=== PATIENT | female | born 1955 | race Caucasian/White ===

== ENCOUNTER → 2017-11-26 | Outpatient (CLI) | payer OTHER ==
[~2017-11-26] MED LIST: AMBIEN 5 MG TABL5 M1 PO; APAP650 PO; COSAMIN DS TAB1 EACH PO; GLUCOSAMINE-CH1 EA37 PO; HYDROCODON-ACE1 EAC5 PO; HYDROXYCHLOROQ200 M1 PO; LUNESTA2 MG PO; METHADONE HCL 110 M1 PO; METHADONE HCL5 MG PO; NEXIUM20 M1 PO; NEXIUM40 MG PO; PREDNISONE 10 M10 MG PO; TIZANIDINE HCL4 M1 PO; TRAZODONE 150150 M1 PO; multivitamin PO
--- NOTE | 2017-11-27 08:24 | PAINCON ---
[address] [address] PAIN MANAGEMENT CONSULTATION Name: SAFIA QUISPE Room: [facility]#: [id number] Admission: 11/26/17 Attend Phys: Madhuri Bishop Discharge: Date of : 53 Report #: [id number] THIS REPORT FOR: //name// CC: Perfecto Plaza DATE OF SERVICE: 11/26/2017 HISTORY OF PRESENT ILLNESS: The patient is a 62-year-old female, being treated for axial back pain, history of both cervical and lumbar decompressive laminectomies with ongoing SI pain status post SI injection under fluoroscopy (left) on last visit. The patient notes that the left SI joint injection afforded a good incremental relief up to 80% with ongoing resolution. She is continuing to take methadone 5 mg t.i.d., though she has dropped the morning dose typically to 1/2 tablet. She notes 80% ongoing relief following the SI injection and is doing core therapy exercises about 5/7 days. We reviewed the fact that opiate medications are being used to provide analgesia adequate to support activities of daily living, not attempting to achieve a specific pain score on the 0-10 Visual Analog Scale. The current opiate medications are providing sufficient analgesia to allow the patient to participate in activities of daily living. The patient is not exhibiting any aberrant behavior suggestive of drug diversion. The patient is not having any adverse reactions to medications. The patient is not suffering from daytime somnolence or mental acuity changes. The patient is managing opiate-induced constipation with appropriate xoai-ncx-ymswbhn agents and dietary considerations. The patient was counseled on concern for caution with operating a motor vehicle while using opiate medications. A physical exam was performed and the patient's functional status was evaluated. All patients with back pain were advised against the bed rest greater than 4 days and were advised to return to normal activities. Pain score assessment was noted and the treatment plan was reviewed with the patient. All current medications, both prescribed and OTC were reviewed and reconciled on the electronic medical record. Tobacco screening was accomplished and smoking cessation was advised when indicated. BMI was noted and diet/exercise modification was recommended for all patients following outside normal parameters. I reviewed with the patient today their responsibilities to safeguard prescription medications, reviewed their responsibility to utilize medications only as prescribed by the physician. They are to seek and receive pain medications only from 1 physician group ( [facility]). They are to use 1 pharmacy and keep the clinic informed if they change pharmacies. Their responsibilities include making followup visits in a timely fashion and to avoid abrupt discontinuation of medication usage. [place] [address] PAIN MANAGEMENT CONSULTATION Name: SAFIA QUISPE Room: [facility] NAE Aguilar#: [id number] Admission: 11/26/17 Attend Phys: Madhuri Bishop Discharge: Date of : 53 Report #: [id number] include bringing their medications (bottles from the pharmacy with residual pills) to the visit for possible confirmation of pill counts and the patient understands it is their responsibility to submit to random drug screens to ensure both that the medications prescribed are present, and that no other controlled substances are present. All prescriptions provided today were generated electronically. PHYSICAL EXAMINATION: GENERAL: Shows a pleasant 62-year-old female. Opiate risk assessment tool scores in the low range. Pain impact score is 17/70. Subjective pain score is 2-3 on a VAS. 5 feet 2 inches, 140 pounds, BMI is 25.9 kilograms per meter squared. VITAL SIGNS: Blood pressure 113/61, pulse 96, respirations 16. NEUROLOGIC: Alert and oriented to person, place and time, judged to be a reasonable historian. MUSCULOSKELETAL: Rises from chair easily. Gait is tandem. Diffuse tenderness across the low back, right greater than left SI. Lower extremity strength is preserved. ASSESSMENT: Symptomatic sacroiliac mediated pain, history of axial back pain, lumbar radiculopathy status post decompressive laminectomy and status post cervical decompressive laminectomy as well, requiring high risk complex medication management. RECOMMENDATIONS: 1. Review an opiate consent to treat contract today. 2. Buccal random drug swab was accomplished today, no aberrant behavior suggestive of drug diversion, simply complying with our opiate consent to treat contract. 3. I have taken the liberty of renewing methadone 5 mg t.i.d. with 2 prescriptions, 1 released today and 1 release in 4 weeks. Suggest patient continue trialing 1/2 methadone in the morning and progressed to 1/2 tablet at midday. She can take up to 1 tablet t.i.d. as needed. Follow up in 2 months for reevaluation. Discharged in good and stable condition after moderately prolonged visit spent reviewing opiate consent to treat contract, medication risks and profiles and efficacy of last injection. <ELECTRONICALLY SIGNED> By: Masoud Plaza DO 11/27/17 0824 [id number] [id number] Plaza DO /nt
== END ==
LOC: M.PC 11-12 10:00
DX: M54.16 Radiculopathy, lumbar region (principal); M53.3 Sacrococcygeal disorders, not elsewhere classified; Z98.890 Other specified postprocedural states; Z79.899 Other long term (current) drug therapy

== ENCOUNTER → 2018-02-11 | Outpatient (CLI) | payer OTHER ==
--- NOTE | 2018-02-12 06:52 | PAINCON ---
[address] [address] PAIN MANAGEMENT CONSULTATION Name: SAFIA QUISPE Room: [facility]#: [id number] Admission: 02/11/18 Attend Phys: Madhuri Bishop Discharge: Date of : 53 Report #: [id number] THIS REPORT FOR: //name// CC: Perfecto Plaza DATE OF SERVICE: 02/11/2018 The patient is a 62-year-old female, prior seen in the pain clinic 11/26/2017, continued on methadone 5 mg t.i.d. for axial back pain, history of cervical and lumbar decompressive laminectomies, SI joint dysfunction requiring complex medication management. Buccal swab at last visit was curiously negative for methadone and EDDP. The patient has exhibited no aberrant behavior suggestive for drug diversion. We elected to repeat the buccal swab today. She notes pain is 0-1 on VAS and notes pain has been manageable with her current medication, prior had been in her back and left leg. PHYSICAL EXAMINATION: Shows 5-foot 2-inch, 143-pound female, BMI is 26.3 kilograms per meter squared. Blood pressure 103/71, pulse 84, respirations 16. Cranial nerves 2-12 are grossly intact. Pupils are pinpoint but reactive. Extraocular muscles are intact. Rises from chair using armrest. Gait is tandem. Lower extremity strength is preserved. Lumbar flexion is limited. She tells me she has been walking nightly about 30 minutes. She has not fallen since our last visit, does not use tobacco products. We reviewed the fact that opiate medications are being used to provide analgesia adequate to support activities of daily living, not attempting to achieve a specific pain score on the 0-10 Visual Analog Scale. The current opiate medications are providing sufficient analgesia to allow the patient to participate in activities of daily living. The patient is not exhibiting any aberrant behavior suggestive of drug diversion. The patient is not having any adverse reactions to medications. The patient is not suffering from daytime somnolence or mental acuity changes. The patient is managing opiate-induced constipation with appropriate dadh-bys-puwknxj agents and dietary considerations. The patient was counseled on concern for caution with operating a motor vehicle while using opiate medications. A physical exam was performed and the patient's functional status was evaluated. All patients with back pain were advised against the bed rest greater than 4 days and were advised to return to normal activities. Pain score assessment was noted and the treatment plan was reviewed with the patient. All current medications, both prescribed and OTC were reviewed and reconciled on the electronic medical record. Tobacco screening was accomplished and smoking cessation was advised when indicated. BMI was noted and diet/exercise modification was recommended [place] [address] PAIN MANAGEMENT CONSULTATION Name: SAFIA QUISPE Room: [facility]#: [id number] Admission: 02/11/18 Attend Phys: Madhuri Bishop Discharge: Date of : 53 Report #: [id number] parameters. I reviewed with the patient today their responsibilities to safeguard prescription medications, reviewed their responsibility to utilize medications only as prescribed by the physician. They are to seek and receive pain medications only from 1 physician group ( [facility]). They are to use 1 pharmacy and keep the clinic informed if they change pharmacies. Their responsibilities include making followup visits in a timely fashion and to avoid abrupt discontinuation of medication usage. Their responsibilities further include bringing their medications (bottles from the pharmacy with residual pills) to the visit for possible confirmation of pill counts and the patient understands it is their responsibility to submit to random drug screens to ensure both that the medications prescribed are present, and that no other controlled substances are present. All prescriptions provided today were generated electronically. ASSESSMENT: Lumbar radiculopathy, axial back pain, left radicular pain status post decompressive laminectomy, sacroiliac joint dysfunction requiring complex medication management, stable on baseline medication. RECOMMENDATION: Renew methadone 5 mg t.i.d. Taken the liberty of writing for 2 months of current medication. Repeat buccal drug swab today. The patient had a prolonged visit today. I spent reviewing diagnostic findings (negative buccal swab last visit), physical exam and functional status. If buccal swab comes back negative at next visit, we will probably want to get a urine drug screen. I am somewhat stymied why current screen would have been negative. Again, anyone can divert opiates, but she is on relatively low dose "nondesirable" methadone. Follow up in 1 month for reevaluation. Repeat drug screen if needed. <ELECTRONICALLY SIGNED> By: Masoud Plaza DO 02/12/18 0652 [id number] [id number] Plaza DO /nt
== END ==
LOC: M.PC 01-21 01:21
DX: M54.16 Radiculopathy, lumbar region (principal); M53.3 Sacrococcygeal disorders, not elsewhere classified; Z79.899 Other long term (current) drug therapy

== ENCOUNTER → 2018-04-15 | Outpatient (CLI) | payer OTHER ==
--- NOTE | 2018-04-16 06:59 | PAINCON ---
[address] [address] PAIN MANAGEMENT CONSULTATION Name: SAFIA QUISPE Room: [facility].#: [id number] Admission: 04/15/18 Attend Phys: Madhuri Bishop Discharge: Date of : 53 Report #: [id number] THIS REPORT FOR: //name// CC: Perfecto Plaza The patient is a 62-year-old female, prior seen in pain clinic 02/11/2018. She is being treated for chronic axial back pain, history of lumbar and cervical decompressive laminectomy, requiring complex medication management. She has been stable on methadone 5 mg t.i.d. She tells me she just got back from traveling to [place], [place], spent a good deal of time, walking the same which did exacerbate axial back pain. She has been back in about a week and states symptoms are starting to get a little better overall. She has also recently been diagnosed with systemic scleroderma. She is being followed by Rheumatology at . They prescribed Plaquenil. She is waiting until next week to start that agent. States the methadone and tizanidine p.r.n. have been helpful overall. She rates her pain a 1-2 on a VAS. Physical exam shows 5 feet 2 inches, 150 pound female, BMI is 27.4 kilograms per meter squared. Blood pressure 126/63, pulse is 87, respirations 16. Alert and oriented to person, place and time, judged to be a reasonable historian. Rises from chair using armrest. Gait is generally tandem, some diffuse tenderness across the low back, a little left SI tenderness, but really fairly nominal at this time. Range of motion is good. Lumbar flexion. Yara is negative. Straight leg raise is negative. We reviewed the fact that opiate medications are being used to provide analgesia adequate to support activities of daily living, not attempting to achieve a specific pain score on the 0-10 Visual Analog Scale. The current opiate medications are providing sufficient analgesia to allow the patient to participate in activities of daily living. The patient is not exhibiting any aberrant behavior suggestive of drug diversion. The patient is not having any adverse reactions to medications. The patient is not suffering from daytime somnolence or mental acuity changes. The patient is managing opiate-induced constipation with appropriate fleo-cnc-zduaqkw agents and dietary considerations. The patient was counseled on concern for caution with operating a motor vehicle while using opiate medications. A physical exam was performed and the patient's functional status was evaluated. All patients with back pain were advised against the bed rest greater than 4 days and were advised to return to normal activities. Pain score assessment was noted and the treatment plan was reviewed with the patient. All current medications, both prescribed and OTC were reviewed and reconciled on the electronic medical record. Tobacco screening was accomplished and smoking [facility] [address] [place] [address] PAIN MANAGEMENT CONSULTATION Name: SAFIA QUISPE Room: [facility]#: [id number] Admission: 04/15/18 Attend Phys: Madhuri Bishop Discharge: Date of : 53 Report #: [id number] cessation was advised when indicated. BMI was noted and diet/exercise modification was recommended for all patients following outside normal parameters. I reviewed with the patient today their responsibilities to safeguard prescription medications, reviewed their responsibility to utilize medications only as prescribed by the physician. They are to seek and receive pain medications only from 1 physician group ( [facility]). They are to use 1 pharmacy and keep the clinic informed if they change pharmacies. Their responsibilities include making followup visits in a timely fashion and to avoid abrupt discontinuation of medication usage. Their responsibilities further include bringing their medications (bottles from the pharmacy with residual pills) to the visit for possible confirmation of pill counts and the patient understands it is their responsibility to submit to random drug screens to ensure both that the medications prescribed are present, and that no other controlled substances are present. All prescriptions provided today were generated electronically. ASSESSMENT: Chronic axial back pain, history of sacroiliac mediated dysfunction, history of lumbar decompressive laminectomy, requiring complex medication management, stable on baseline medication including methadone 5 mg t.i.d., tizanidine 4 mg 2-3 tablets as needed for spasm. I have taken the liberty of writing for 2 months. Follow up with my partner, Dr. Nas Zeng for ongoing care as I am leaving the practice area. <ELECTRONICALLY SIGNED> By: Masoud Plaza DO 04/16/18 0659 1237 [id number] Plaza DO /nt
== END ==
LOC: M.PC 04-08 08:30
DX: M54.5 Low back pain (principal); G89.29 Other chronic pain; Z79.899 Other long term (current) drug therapy

== ENCOUNTER → 2018-06-09 | Outpatient (CLI) | payer OTHER ==
--- NOTE | 2018-06-19 08:37 | PAINCON ---
[address] [address] PAIN MANAGEMENT CONSULTATION Name: SAFIA QUISPE [id number] Admission: 06/09/18 Attend Phys: Lou Zeng MD Discharge: Date of : 53 Report #: [id number] THIS REPORT FOR: //name// CC: Lou Read DATE OF SERVICE: 06/09/2018 CHIEF COMPLAINT: Right side SI joint pain. HISTORY OF PRESENT ILLNESS: The patient is a 62-year-old female who has been followed in the Pain Clinic for some time by Dr. Masoud Plaza. This is my first visit with her. States that she has a history of chronic pain associated with systemic scleroderma as well as some SI joint pain. She returns today for renewal of her medications. Overall, she feels that things are going reasonably well. As you recall, she works from her house. She has had surgery in her low back area involving the L5/L4 area. She has noted some bulging in recent time involving the L4-L5 low back area. Also, has been told that the L3 area has been shown some signs of bulging. She has had a fusion in her neck at C3-C4. Overall, things have been going reasonably well. She is having pain that radiates down the posterior portion of her back into the right buttocks down to the level of her knee. Finds that her current medications are going reasonably well. She also has scleroderma. Has some difficulty with thickening of her skin. Has some problems with swallowing. Has a history of Lawrence esophagitis. Also, has some pain associated with the SI joint. She is having some problems with scleroderma involving her fingertips. Notes that there is some pitting. She does use a keyboard, quite often note some worsening of pain. She would like to continue with her current medications. Overall, she feels that things are going reasonably well. She rates it as a 3/10. She has had no complications. The patient continues to be followed by Rheumatology at . She continues to take Plaquenil for her problem. She finds that tizanidine and methadone continue to be efficacious. She would like to continue these medications. She has had no complication from their use. She is aware that the opioid medications can be problematic ____ can arise. Notes that the pain results can decrease over a period of time secondary to tolerance. She would like to continue with her medications. ALLERGIES: COMPAZINE AND ADHESIVES. CURRENT MEDICATIONS: Tylenol 650 mg, Nexium 40 mg b.i.d., glucosamine chondroitin, Plaquenil 200 mg, methadone 5 mg tablets q.8h., tizanidine for upper back pain, Ambien 5 mg, and multivitamins. PAST MEDICAL HISTORY: [address] [place] [address] PAIN MANAGEMENT CONSULTATION Name: SAFIA QUISPE Room: [facility]#: [id number] Admission: 06/09/18 Attend Phys: Lou Zeng MD Discharge: Date of : 53 Report #: [id number] 1. Scleroderma. 2. Lawrence's esophagitis. 3. SI joint dysfunction. 4. History of lumbar radiculopathy status post lumbar surgery L4-L5 areas. 5. Cervical radicular pain status post C3-C4 fusion. PAST SURGICAL HISTORY: Hysterectomy in 1975, cholecystectomy in 1988, L4-L5 fusion in 2002, and C3-C4 fusion in 2008. 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 REVIEW OF SYSTEMS: Decreased appetite, fatigue, ringing in the ears, hearing loss, chest pain, angina, palpitations, bowel changes, rash, skin changes, hair and nail changes. LABORATORY DATA: No new laboratory values are available at the time of our interview. PAIN CLINIC ASSESSMENT: 1. History of arthritis associated with scleroderma. 2. Height 5 feet 2 inches, weight 147 pounds, BMI is 27. 3. VITAL SIGNS: Blood pressure is 135/80, heart rate 88, respiratory rate 16, room air saturation 97%, and temperature 98.8. 4. Pain intensity 01/10. 5. Fall risk. The patient has not fallen in the last 3 months. 6. Blood thinner. The patient is not on blood thinning medication. 7. Hypertension. The patient has not been treated for hypertension. 8. Opioid therapy. The patient received her medication from the Pain Clinic. 9. Risk assessment too low for use of opioid medication. 10. Functional assessment tool. 11. Recreational drug use. The patient denies recreational drugs. 12. Tobacco: The patient denies use of tobacco. 13. Alcohol: The patient has a monthly alcoholic beverage. IMPRESSION: 1. History of sacroiliac joint dysfunction with pain radiating down into the left buttocks and posterior thigh. 2. Scleroderma. 3. Lawrence's esophagitis. 4. SI joint dysfunction. 5. History of lumbar radiculopathy status post lumbar surgery L4-L5 areas. 6. Cervical radicular pain status post C3-C4 fusion. RECOMMENDATIONS: We discussed the treatment options with the patient. Risks and benefits of continued use of medications were reviewed. The patient would like to continue with her medications. She is having no complications. She is [facility] [address] [place] [address] PAIN MANAGEMENT CONSULTATION Name: SAFIA QUISPE Room: [facility]#: [id number] Admission: 06/09/18 Attend Phys: Lou Zeng MD Discharge: Date of : 53 Report #: [id number] thinking clearly. She continues to be followed by her other physicians in regards to her scleroderma. A script for her medications has been renewed. The patient will follow up in the future as needed. We would like to thank you for letting us participate in her care. We hope she continues to improve. <ELECTRONICALLY SIGNED> By: Lou Zeng MD 06/19/18 0837 [id number] [id number]. Nas Zeng MD /nt
== END ==
LOC: M.PC 04:56
DX: M53.3 Sacrococcygeal disorders, not elsewhere classified (principal); M34.9 Systemic sclerosis, unspecified; M54.2 Cervicalgia; K22.70 Barrett's esophagus without dysplasia

== ENCOUNTER → 2018-09-01 | Outpatient (CLI) | payer OTHER ==
--- NOTE | 2018-09-16 16:20 | PAINCON ---
[address] [address] PAIN MANAGEMENT CONSULTATION Name: SAFIA QUISPE Room: [facility] Jeff#: [id number] Admission: 09/01/18 Attend Phys: Lou Zeng MD Discharge: Date of : 53 Report #: [id number] THIS REPORT FOR: //name// CC: Lou Read DATE OF SERVICE: 09/01/2018 CHIEF COMPLAINT: Pain in the joints of my elbow and behind my knees. HISTORY: The patient is a 62-year-old female who has been followed in the pain clinic because of a systemic scleroderma. Has problems with her SI joints. Also, is having some pain and discomfort in the inner portion of or elbows bilaterally. Notes that there is a thickening of the skin in this area. Has some pain associated with numbness and tingling. She does use a lotion, which she places on it, which is helpful. Also, has some pain and discomfort behind her knees because of thickening of the skin in this area. Feels overall that things are going reasonably well. States that she had an echo and evaluation of her lungs and other organs. It does not appear that the scleroderma is affecting them at this juncture. She feels that the methadone medication continues to be helpful. Does have some exacerbations of her discomfort with changes in temperature, has gotten colder, walking, sitting, standing, climbing stairs, bending and lifting. Note some benefit and relief with use of hot/cold, rest and use of her medications. She is considering following up with [employer] operating manager who is an area closer to her home. She will follow up with him in early October. She has had no complications with use of her medications. ALLERGIES: COMPAZINE ADHESIVE. CURRENT MEDICATIONS: Tylenol 650 mg, Nexium 40 mg b.i.d., glucosamine chondroitin, Plaquenil 200 mg, methadone 5 mg q.i.d., tizanidine for upper back pain, Ambien 5 mg, multivitamins. PAIN CLINIC ASSESSMENT/PQRS: 1. History of arthritis associated with scleroderma. Height 5 feet 2 inches, weight 150 pounds, BMI is 27.0. 2. VITAL SIGNS: Blood pressure 123/76, heart rate 80, respiratory rate 16, room air saturation 98%. 3. Pain intensity 01/10. 4. Fall risk. The patient has not fallen in the last 3 months. 5. Blood thinner. The patient is not on a blood thinning medication. 6. Hypertension. The patient is not being treated for hypertension. 7. Opioid therapy. The patient is receiving her medications from the pain clinic. 8. Risk assessment tool the low for use of opioids. 9. [place] [address] PAIN MANAGEMENT CONSULTATION Name: JOSE ENRIQUESAFIA A Room: [facility]#: [id number] Admission: 09/01/18 Attend Phys: Lou Zeng MD Discharge: Date of : 53 Report #: [id number] 10. Recreational drug use. The patient denies use of recreational drugs. 11. Tobacco: The patient denies use of tobacco. 12. Alcohol: The patient denies use of alcoholic beverages. PHYSICAL EXAMINATION: GENERAL: The patient is well-developed, well-nourished white female, appears her stated age. She is alert and oriented x3. Affect is appropriate. Speech is fluent. HEAD, EYES, EARS, NOSE, AND THROAT: Normocephalic, atraumatic. Extraocular eye muscles intact. Sclerae nonicteric. Mucous membranes are moist. NECK: Without adenopathy or JVD. HEART: Regular rate. ABDOMEN: Nontender. Bowel sounds present. LUNGS: Clear to auscultation. EXTREMITIES: The patient without significant scoliosis, kyphosis or lordosis. Upper extremity muscle strength is judged to be 5/5 for the major muscle groups. The patient has some skin thickening in the antecubital area. States that there is some burning and itching with this. Notes sometimes the pain radiates that itching area also involves the axillary area on the left. Has noted some thickening of skin and the posterior portion of her knees. ASSESSMENT: 1. Scleroderma. 2. History of sacroiliac joint dysfunction and has had pain radiating down to the left buttocks and left thigh. 3. Lawrence esophagitis. 4. Sacroiliac joint dysfunction. 5. History of lumbar radiculopathy status post surgery L4-L5 dermatomal distribution. 6. Cervical radicular pain status post C3-C4 fusion. RECOMMENDATIONS: We discussed treatment options with the patient. At this juncture, we will continue with her current medical regimen of methadone. She feels that this medication is helpful. Overall, things are going reasonably well. She has been following up with her primary physicians. She is going to start with a physician who is closer to home in October. He still is a physician associated with . She feels that her medications are still beneficial and would like to continue their use. She will call us if she has any concerns. A script for methadone 5 mg 1 p.o. [place].i.d. [place] [address] PAIN MANAGEMENT CONSULTATION Name: SAFIA QUISPE Room: [facility]#: [id number] Admission: 09/01/18 Attend Phys: Lou Zeng MD Discharge: Date of : 53 Report #: [id number] We would like to thank you for letting us to participate in her care. We hope she continues to improve. <ELECTRONICALLY SIGNED> By: Lou Zeng MD 09/16/18 1620 [id number] [id number]. Nas Zeng MD /[facility]
== END ==
LOC: M.PC 08-04 04:46
DX: M34.9 Systemic sclerosis, unspecified (principal); K20.8 Other esophagitis; K22.70 Barrett's esophagus without dysplasia; M54.12 Radiculopathy, cervical region; M54.16 Radiculopathy, lumbar region; M53.3 Sacrococcygeal disorders, not elsewhere classified

== ENCOUNTER → 2018-11-05 | Outpatient (CLI) | payer OTHER ==
[~2018-11-05] MED LIST changes: +methotrexate IM
--- NOTE | ~2018-11-05 | PAINCON ---
[address] [address] PAIN MANAGEMENT CONSULTATION Name: SAFIA QUISPE Room: [facility] M.R.#: [id number] Admission: Attend Phys: Lou Zeng MD Discharge: Date of : 53 Report #: [id number] THIS REPORT FOR: //name// CC: Lou Read DATE OF SERVICE: 11/05/2018 CHIEF COMPLAINT: Here for medication renewal. HISTORY: The patient is a 63-year-old female who has been followed in the pain clinic because of chronic pain in her joints. She has elbow pain as well as pain in her knees. She continues to have pain that is improved with her current medication. She feels that the methadone is working well. As you recall, she does have systemic scleroderma. She has been using methotrexate. She receives injections. Also, finds that the tizanidine muscle relaxant is beneficial. Overall, she feels things about 75% improved overall. Has a history of sacroiliac joint problems. She is having some pain and discomfort in the lower portion of her back in that area, particularly on the left side today. Note some thickening of her skin in certain areas. Notes some numbness and tingling in certain areas. She continues to use lotion. Feels that her area behind the knees are thickening; has been evaluated using 2D echo for her lungs and other organs. Overall, things seemed like they are going reasonably well in regard to the scleroderma. Notes that changes in temperature now has gotten colder, can make walking, sitting, standing, climbing and other activities of daily living more problematic. Continues to follow up with her child welfare consultant. Feels that her medications are working reasonably well and not causing a problem. ALLERGIES: COMPAZINE, ADHESIVES. CURRENT MEDICATIONS: Tylenol 650 mg, Nexium 40 mg b.i.d., glucosamine chondroitin, Plaquenil 200 mg, methadone 5 mg q.i.d., tizanidine for upper back pain, Ambien 5 mg, multivitamins, has started methotrexate injections. PAIN CLINIC ASSESSMENT/PQRS: 1. History of arthritis associated with scleroderma. 2. Height 5 feet 2 inches, weight 149 pounds, BMI is 27. 3. Vital signs: Blood pressure 133/73, heart rate 87, respiratory rate 16, room air saturation 98%, temperature 98.7. 4. Pain score 1-2/10. 5. Fall history: The patient has not fallen in the last 3 months. 6. Blood thinner. The patient is not on a blood thinning medication. 7. Hypertension. The patient is not being treated for hypertension. 8. Opioid therapy greater than 6 weeks. The patient received medication from one source, the pain clinic. 9. Risk assessment tool, low [place] [address] PAIN MANAGEMENT CONSULTATION Name: SAFIA QUISPE Room: [facility]#: [id number] Admission: Attend Phys: Lou Zeng MD Discharge: Date of : 53 Report #: [id number] 10. Functional assessment tool. 11. Recreational drug use. The patient denies use of recreational drugs. 12. Tobacco: The patient denies use of tobacco. 13. Alcohol: The patient rarely drinks alcoholic beverages. PHYSICAL EXAMINATION: GENERAL: The patient is a well-developed, well-nourished white female. Appears her stated age. She is alert and oriented x3. Her affect is appropriate. Speech is fluent. HEAD, EYES, EARS, NOSE, AND THROAT: Normocephalic, atraumatic. Extraocular eye muscles intact. Sclerae nonicteric. Mucous membranes are moist. NECK: Without adenopathy or JVD. HEART: Regular rate. ABDOMEN: Nontender. Bowel sounds present. LUNGS: Clear to auscultation. EXTREMITIES: The patient without significant scoliosis, kyphosis or lordosis. Upper extremity muscle strength is judged to be 5-/5 for the upper muscle strength. The patient has some pain and discomfort in the low back and left posterior superior iliac spine and the area consistent with SI joint pain. Note some thickening of the skin in the posterior portion of her knees. ASSESSMENT: 1. Scleroderma. 2. History of sacroiliac joint dysfunction with pain that radiates down to her left buttocks and thigh in the past. 3. Lawrence esophagitis. 4. Sacroiliac joint dysfunction. 5. History of lumbar radiculopathy status post surgery L4-L5 dermatomal distribution. 6. Cervical radiculopathy, status post C3-C4 fusion. RECOMMENDATIONS: We discussed treatment options with the patient. At this juncture, we will continue with her medications of methadone. She feels that this medication is helpful. She will call us if she has any concerns. A script for the methadone medication 5 mg 1 p.o. t.i.d., total of 90 tablets as well as tizanidine 4 mg 1 p.o. b.i.d. have been rewritten. The patient will call us if she has any concerns. We would like to thank you for letting us to participate in her care. We hope she continues to improve. By: [id number]. Nas Zeng MD /ANA
== END ==
LOC: M.PC 08:00
DX: M54.12 Radiculopathy, cervical region (principal); M54.16 Radiculopathy, lumbar region; M53.3 Sacrococcygeal disorders, not elsewhere classified; M43.22 Fusion of spine, cervical region; M34.9 Systemic sclerosis, unspecified; K22.70 Barrett's esophagus without dysplasia; Z79.899 Other long term (current) drug therapy

== ENCOUNTER → 2019-03-09 | Outpatient (CLI) | payer OTHER ==
--- NOTE | ~2019-03-09 | PAINCON ---
[facility] [address] [place] [address] PAIN MANAGEMENT CONSULTATION Name: JOSE ENRIQUESAFIA A Room: [facility].#: [id number] Admission: 03/09/19 Attend Phys: Lou Zeng MD Discharge: Date of : 53 Report #: [id number] THIS REPORT FOR: //name// CC: Lou Read DO DATE OF SERVICE: 03/09/2019 CHIEF COMPLAINT: Here for medication renewal. FOLLOWUP HISTORY: This patient is a 63-year-old female who has been followed in the Pain Clinic. As you recall, she has significant chronic pain today involves her joints. She has pain in her elbows and knees. She has found that methadone continues to be helpful. She has systemic scleroderma involves her skin. Feels that her skin is getting worse. She has had some pulmonary issues as well. Noted problems with the scleroderma after breast implant ruptured. One on the right side ruptured. She feels that the skin continues to thicken. She is not having any real problems with swallowing at this juncture. Rates her pain as 75% improved with her current medical regimen of methadone and tizanidine. She has returned today with a desire to have this medication renewed. Activities, such as walking, sitting, standing, bending, and lifting are problematic because of the scleroderma. ALLERGIES: COMPAZINE, ADHESIVES. CURRENT MEDICATIONS: Tylenol 650 mg, Nexium 40 mg b.i.d., glucosamine chondroitin, Plaquenil 200 mg, methadone 5 mg q.i.d., tizanidine for upper back pain, Ambien 5 mg, multivitamin, methotrexate. PAIN CLINIC ASSESSMENT/PQRS: 1. History of osteoarthritis associated with scleroderma. The patient is not being treated for rheumatoid arthritis. 2. Height 5 feet 2 inches, weight 152 pounds, BMI is 28.1. 3. Vital Signs: Blood pressure 122/69, heart rate 88, respiratory rate 16, room air saturation 96%, temperature 98.6. 4. Pain intensity, 5/10. 5. Fall history: The patient has not fallen in the last 3 months. 6. Blood thinner. The patient is not on a blood thinning medication. 7. Hypertension. The patient is not being treated for hypertension. 8. Opioids greater than 6 weeks. The patient receives her medication from one source the Pain Clinic. 9. Risk assessment tool, low for opioid use. 10. Functional assessment tool. 11. Recreational drug use. The patient denies use of recreational drugs. 12. Tobacco: The [place] [address] PAIN MANAGEMENT CONSULTATION Name: SAFIA QUISPE Room: [facility]#: [id number] Admission: 03/09/19 Attend Phys: Lou Zeng MD Discharge: Date of : 53 Report #: [id number] 13. Alcohol: The patient rarely drinks alcoholic beverages. PHYSICAL EXAMINATION: GENERAL: The patient is a well-developed, well-nourished white female. Appears her stated age. She is alert and oriented x 3. Her affect is appropriate. Speech is fluent. HEENT: Normocephalic, atraumatic. Extraocular eye muscles intact. Sclerae nonicteric. Mucous membranes are moist. NECK: Without adenopathy or JVD. HEART: Regular rate. ABDOMEN: Nontender. Bowel sounds present. LUNGS: Clear to auscultation. EXTREMITIES: Upper extremity without significant scoliosis, kyphosis or lordosis. Lower extremity muscle strength, 5-/5. Upper extremity muscle strength, 5-/5. The patient has some discomfort in the low back area. Posterior superior iliac spine areas are somewhat sore. The patient continues to note thickening of the skin in the posterior portion of her knees. IMPRESSION. 1. Scleroderma. 2. History of sacroiliac joint dysfunction with pain that radiates down her buttocks and into the thighs. 3. Lawrence's esophagitis. 4. Sacroiliac joint dysfunction. 5. History of lumbar radiculopathy, status post surgery at L4-L5. 6. Cervical radiculopathy, status post C3-C4 fusion. RECOMMENDATIONS: We discussed treatment options with the patient. The patient feels that her medications are working reasonably well. She would like to continue with them. Overall, she has taken her medications, feels that the medication is beneficial. She is able to engage in activities, she would not be able to without their use. She states she keeps her medications in a guarded area. She is aware that the opioid problems that exist. She states that she has taken her medications as prescribed. We will continue with the patient's medication. A script for methadone 5 mg 1 p.o. t.i.d. has been provided. The patient will continue with 90 tablets as well as tizanidine 4 mg 1 p.o. b.i.d. These both have been written. The patient will call us if she has any concerns. We would like to thank you for letting us participate in her care. We hope she continues to improve. By: [id number]. Nas Zeng MD /nt
== END ==
LOC: M.PC 04:35
DX: G89.29 Other chronic pain (principal); M34.9 Systemic sclerosis, unspecified; K22.70 Barrett's esophagus without dysplasia; M54.16 Radiculopathy, lumbar region; M54.12 Radiculopathy, cervical region; Z88.8 Allergy status to other drugs, medicaments and biological substances; Z91.048 Other nonmedicinal substance allergy status; Z79.899 Other long term (current) drug therapy; Z79.891 Long term (current) use of opiate analgesic; Z98.890 Other specified postprocedural states

== ENCOUNTER → 2019-05-04 | Outpatient (CLI) | payer OTHER ==
--- NOTE | 2019-05-05 14:27 | PAINCON ---
[facility] [address] [place] [address] PAIN MANAGEMENT CONSULTATION Name: SAFIA QUISPE Room: [facility].#: [id number] Admission: 05/04/19 Attend Phys: Lou Zeng MD Discharge: Date of : 53 Report #: [id number] THIS REPORT FOR: //name// CC: Lou Read DATE OF SERVICE: 05/04/2019 CHIEF COMPLAINT: Here for medication renewal. HISTORY: The patient is a 63-year-old gentleman who has been followed in the pain clinic because of chronic pain. She has pain in a number of areas. She has pain in her elbows as well as her knees. She is now experiencing pain in the low back area. Feels that her medications are continuing to help. No significant changes in her pain distribution is noted at this juncture. She feels that her medications provided by 75% improvement over pain control. Notes that pain increases with walking, sitting, standing, climbing stairs, going from a sitting to a standing position. Feels that her medications as well as rest are beneficial. No complication from her medications. She feels the medications allow her to do activities she would not be able to without their use. She has returned today for renewal of her medications. ALLERGIES: COMPAZINE, ADHESIVES. CURRENT MEDICATIONS: Tylenol 650 mg, Nexium 40 mg b.i.d., glucosamine chondroitin, Plaquenil 200 mg, methadone 5 mg q.i.d., tizanidine for upper back pain. Ambien 5 mg, multivitamins, methotrexate. PAIN CLINIC ASSESSMENT/PQRS: 1. The patient has a history of osteoarthritis. She has scleroderma. She has not been treated for rheumatoid arthritis. 2. Height 5 feet 2 inches, weight 151 pounds, BMI is 27.9. 3. VITAL SIGNS: Blood pressure 131/90, heart rate 98, respiratory rate 16, room air saturation 95%, temperature is 98.6. 4. Pain intensity 3/4. 5. Fall history: The patient has not fallen in the last 3 months. 6. Blood thinner. The patient is not on a blood thinning medication. 7. Hypertension. The patient is not being treated for hypertension. 8. Opiate greater than 6 weeks. The patient receives her medication from one source, the pain clinic. 9. Risk assessment tool, low for opioid use. 10. Functional assessment tool. 11. Recreational drug use. The patient denies use of recreational drugs. 12. Tobacco: The patient denies use of tobacco. 13. Alcohol. The patient [place] [address] PAIN MANAGEMENT CONSULTATION Name: SAFIA QUISPE Room: [facility]#: [id number] Admission: 05/04/19 Attend Phys: Lou Zeng MD Discharge: Date of : 53 Report #: [id number] PHYSICAL EXAMINATION: GENERAL: The patient is a well-developed, well-nourished white female. Appears her stated age. She is alert and oriented x 3. Affect is appropriate. Speech is fluent. HEENT: Normocephalic, atraumatic. Extraocular eye muscles intact. Sclerae nonicteric. Mucous membranes are moist. NECK: Without adenopathy or JVD. HEART: Regular rate. ABDOMEN: Nontender. Bowel sounds present. EXTREMITIES: Upper extremity muscle strength with 5-. The patient without significant scoliosis, kyphosis or lordosis. Lower extremity muscle strength is judged to be 5-/5. The patient has some discomfort in the posterior portion of her iliac areas and some soreness in this area. The patient continues to have some thickening of the skin in the posterior portion of her knees. IMPRESSION: 1. Scleroderma. 2. History of sacroiliac joint dysfunction with pain that radiates down into her buttocks and into the thighs. 3. Lawrence's esophagitis. 4. Sacroiliac joint dysfunction. 5. History of lumbar radiculopathy status post surgery at L4-L5. 6. Cervical radiculopathy, status post C3-C4 fusion. RECOMMENDATIONS: We discussed treatment options with the patient. The patient feels that her medications are helpful. She would like to continue with their use. Finds that the tizanidine has helped her with the muscle spasms. She will continue with this medication. A script for 4 mg 1 p.o. b.i.d. has been dispensed. The patient will also continue with methadone. She feels that this medication is working reasonably well. She does not have any problems with thinking. She is able to take the medication without problems. She is aware that opioid medications for some people are problematic. She feels that the medication at this juncture for her is working well. She keeps it in a guarded area. She is aware of the possible complications of the medications which could be less effective this over a period of time secondary to development of tolerance. She would like to have her medications renewed. A script for these medications have been provided to her. She will call us if she should need. We will continue with helping control her pain with this complex medical management using opioids. <ELECTRONICALLY SIGNED> By: Lou Zeng MD 05/05/19 1427 1513 [id number]. Nas Zeng MD /crow
== END ==
LOC: M.PC 05:07
DX: M54.12 Radiculopathy, cervical region (principal); M43.22 Fusion of spine, cervical region; G89.29 Other chronic pain; M53.3 Sacrococcygeal disorders, not elsewhere classified; K22.70 Barrett's esophagus without dysplasia; M34.9 Systemic sclerosis, unspecified; Z79.899 Other long term (current) drug therapy

== ENCOUNTER → 2019-08-10 | Outpatient (CLI) | payer OTHER ==
--- NOTE | 2019-08-25 09:09 | PAINCON ---
[address] [address] PAIN MANAGEMENT CONSULTATION Name: SAFIA QUISPE Room: [facility].#: [id number] Admission: 08/10/19 Attend Phys: Lou Zeng MD Discharge: Date of : 53 Report #: [id number] THIS REPORT FOR: //name// CC: Lou Read DATE OF SERVICE: 08/10/2019 CHIEF COMPLAINT: Here for medication renewal. "I have been diagnosed with Meniere's disease." HISTORY OF PRESENT ILLNESS: The patient is a 63-year-old female who has been followed in the pain clinic because of chronic pain. She has pain in number of areas. They include elbows, knees, forearms, and hands. The patient has a history of scleroderma. She is noticing some worsening of her symptoms with the effects progressing down in her left forearm. She is doing reasonably well. She is slated to undergo pulmonary function tests as well as an echo in the near future. She has been diagnosed with Meniere's disease with ringing in the ears, hearing loss, and some problems with her balance. She is having pain in the lower portion of her back that continues to radiate down into the left leg. She has returned to the pain clinic today for renewal of her medications. ALLERGIES: COMPAZINE, ADHESIVES. CURRENT MEDICATIONS: Tylenol 650 mg, Nexium 40 mg b.i.d., glucosamine/chondroitin, Plaquenil 200 mg, methadone 5 mg q.i.d., tizanidine, upper back pain, Ambien 5 mg, multivitamins, and methotrexate. PAIN CLINIC ASSESSMENT AND PQRS: 1. The patient has a history of osteoarthritis. She is being treated for scleroderma. She is not being treated for rheumatoid arthritis. 2. Height 5 feet 2 inches, weight 151 pounds, BMI is 27.7. 3. Vital signs: Blood pressure 124/66, heart rate 83, respiratory rate 16, room air saturation 98%, temperature 98.4. 4. Pain intensity 1-12/13. 5. Fall history: The patient has not fallen in the last 3 months. 6. Blood thinner. The patient is not on a blood thinning medication. 7. Hypertension. The patient is not being treated for hypertension. 8. Opioids greater than 6 weeks. The patient receives medication from one source the pain clinic. 9. Risk assessment tool, low for opioid use. 10. Functional assessment tool. 11. Recreational drug use. The patient denies. 12. Tobacco: The patient denies use of tobacco. 13. Alcohol: The patient [place] [address] PAIN MANAGEMENT CONSULTATION Name: SAFIA QUISPE Room: [facility]#: [id number] Admission: 08/10/19 Attend Phys: Lou Zeng MD Discharge: Date of : 53 Report #: [id number] PHYSICAL EXAMINATION: GENERAL: The patient is a well-developed, well-nourished white female. Appears her stated age. She is alert and oriented x 3. Her affect is appropriate. Speech is fluent. HEENT: Normocephalic, atraumatic. Extraocular eye muscles intact. Sclerae nonicteric. Mucous membranes are moist. NECK: Without adenopathy or JVD. HEART: Regular rate. LUNGS: Generally clear to auscultation. ABDOMEN: Nontender. EXTREMITIES: Upper extremity, the patient's muscle strength is 5-/5. Complains of some movement of the scleroderma down her left arm. The patient without significant scoliosis, kyphosis, or lordosis. Upper extremity muscle strength judged to be 5-/5. The patient has some discomfort with redness in her fingers, which are more problematic since the escalation of the scleroderma. The patient has thickening of skin in the posterior portion of her knees. IMPRESSION: 1. Scleroderma. 2. 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 3. History of sacroiliac joint dysfunction with pain that radiates into her buttocks and to the left thigh. 4. Lawrence's esophagitis. 5. Sacroiliac joint dysfunction. 6. History of lumbar radiculopathy with status post surgery at L4-L5. 7. Cervical radiculopathy, status post C3-C4 fusion. RECOMMENDATIONS: We discussed treatment options with the patient. Risks and benefits of opioid medications again were discussed. They could cause problems in certain patients. Patients sometimes can develop addiction. The patient has not shown any addictive behavior. She has taken the medication as prescribed. She feels that it is beneficial and enables her to engage in activities of life at a higher level. She is not having any concerns with the use of the medication. We will continue with her medication and rewrite her prescription. A script for methadone 5 mg 1 p.o. t.i.d. have been rewritten. The patient will also continue with tizanidine 4 mg for muscle spasms. She will call us if she has any concerns. We will continue with the opioid medications to help control the patient's chronic pain. <ELECTRONICALLY SIGNED> By: Lou Zeng MD 08/25/19 0909 [id number]. Nas Zeng MD /crow
== END ==
LOC: M.PC 07-27 09:00
DX: Z76.0 Encounter for issue of repeat prescription (principal); M34.9 Systemic sclerosis, unspecified; H81.03 Meniere's disease, bilateral; K22.70 Barrett's esophagus without dysplasia; M54.12 Radiculopathy, cervical region; Z79.899 Other long term (current) drug therapy; Z79.891 Long term (current) use of opiate analgesic

== ENCOUNTER → 2019-10-05 | Outpatient (CLI) | payer OTHER ==
[~2019-10-05] MED LIST changes: +POTASSIUM20 PO; +XARELTO20 MG PO
--- NOTE | 2019-10-05 20:11 | PAINCON ---
[address] [address] PAIN MANAGEMENT CONSULTATION Name: SAFIA QUISPE Room: [facility] Jeff#: [id number] Admission: 10/05/19 Attend Phys: Lou Zeng MD Discharge: Date of : 53 Report #: [id number] THIS REPORT FOR: //name// CC: Lou Read DO DATE OF SERVICE: 10/05/2019 FOLLOWUP COMPLAINT: "I have seen my team assistant because I have had atrial fibrillation and now I have been on some new medications." HISTORY: The patient is a 63-year-old female who has been followed in the pain clinic because of chronic pain. She is experiencing pain in her low back area. She has noticed that there is pain that is radiating down into her left hip. She hosted Thanksgiving. She feels that she is suffering some of the soreness associated with that activity. She rates her pain as a 3/10. She is using Xarelto at this point. She has been placed on metoprolol. Her atrial fibrillation is better. She states that she is having some problem with her right side of her heart causing increased problem for the left side. She feels that her medications are working reasonably well. She would like to continue with her medications. She feels that her methadone medication as well as tizanidine are beneficial. She feels that things are 50-75% improved with her current medications. Overall, the temperature has fallen outside. She notes that walking, sitting, standing, climbing stairs, bending and twisting are more problematic. ALLERGIES: COMPAZINE, ADHESIVES. CURRENT MEDICATIONS: Tylenol 650 mg, Nexium 40 mg b.i.d., glucosamine/chondroitin, Plaquenil 200 mg, methadone 5 mg q.i.d., tizanidine, Ambien 5 mg, multivitamins, methotrexate, Xarelto 20 mg daily and metoprolol. PAIN CLINIC ASSESSMENT/PQRS: 1. The patient is being treated for scleroderma. She is not being treated for rheumatoid arthritis or osteoarthritis. 2. Height 5 feet 2 inches, weight 154 pounds, BMI is 28.7. 3. Vital signs: Blood pressure 119/86, heart rate 90, respiratory rate 16, room air saturation 98% and temperature 98.6. 4. Pain intensity 01/10. 5. Fall history: The patient has not fallen in the last 3 months. 6. Blood thinner. The patient is on a blood thinning medication, Xarelto because of atrial fibrillation. 7. Hypertension. The patient is not being treated for hypertension. 8. Opioids greater than 6 weeks. The patient received medication from one source, [place] [address] PAIN MANAGEMENT CONSULTATION Name: SAFIA QUISPE [facility]: [facility]#: [id number] Admission: 10/05/19 Attend Phys: Lou Zeng MD Discharge: Date of : 53 Report #: [id number] 9. Risk assessment tool, low for opioid use. 10. Functional assessment tool. 11. Recreational drug use: The patient denies. 12. Tobacco: The patient denies use of tobacco. 13. Alcohol: The patient rarely drinks alcoholic beverages. PHYSICAL EXAMINATION: GENERAL: The patient is a well-developed, well-nourished white female. She appears her stated age. She is alert and oriented x 3. Her affect is appropriate. Speech is fluent. HEENT: Normocephalic, atraumatic. Extraocular eye muscles intact. Sclerae nonicteric. Mucous membranes are moist. NECK: Without adenopathy or JVD. HEART: History of atrial fibrillation, regular today. LUNGS: Generally clear to auscultation. ABDOMEN: Nontender. Bowel sounds present. EXTREMITIES: Upper extremity muscle strength judged to be 5-/5 for the major muscle groups in the upper extremity. The patient has some scleroderma involving her left arm. She is without significant scoliosis, kyphosis or lordosis. She notes some pain and discomfort in the lower portion of her left back with some pain radiating down to the left buttocks area. Lower extremity muscle strength judged to be 5-/5 for the major muscle groups in the lower extremity. She has redness in her fingers associated with scleroderma. She notes thickening of the skin of the posterior portion of her knees. IMPRESSION: 1. Scleroderma. 2. Atrial fibrillation, stable. 3. 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 4. History of sacroiliac joint dysfunction with pain radiates to her buttocks on the left side and down into her thigh. 5. Lawrence's esophagitis. 6. Sacroiliac joint dysfunction. 7. History of lumbar radiculopathy status post surgery L4-L5. 8. Surgical radiculopathy status post fusion at C3-C4. RECOMMENDATIONS: We discussed treatment options with the patient. Risks and benefits of her medications have been discussed. She feels medications are helpful. She did have an active holiday. She hosted Thanksgiving dinner. She notes increased pain and discomfort as a result of that activity. She did develop some problems with atrial fibrillation. She has been followed by her primary. She states that pulmonary tests as well as cardiac evaluations have been done yearly. There is some note of change and scleroderma effects on her right ventricle. Having more cause some problem with the left side of her heart per her report. We will continue with her current medications of methadone 5 mg [facility] [address] [place] [address] PAIN MANAGEMENT CONSULTATION Name: SAFIA QUISPE Room: [facility]#: [id number] Admission: 10/05/19 Attend Phys: Lou Zeng MD Discharge: Date of : 53 Report #: [id number] p.o. t.i.d. She will follow up in the future as needed. She also will continue with tizanidine 4 mg p.o. b.i.d. p.r.n. We would like to thank you for letting us participate in her care. We hope she continues to improve. Script for her medications has been written. She is aware that opioid medications can be problematic. Patients can notice a decrease in performance/pain levels as a result of tolerance. She feels her medications are working well and would like to continue their use. She keeps her medications in a guarded area. <ELECTRONICALLY SIGNED> By: Lou Zeng MD 10/05/192010 [id number]. Nas Zeng MD /nt
== END ==
LOC: M.PC 04:26
DX: M34.9 Systemic sclerosis, unspecified (principal); I48.91 Unspecified atrial fibrillation; K22.70 Barrett's esophagus without dysplasia; M54.16 Radiculopathy, lumbar region